=== PATIENT | male | born 1935 | race Caucasian/White ===

== ENCOUNTER → 2018-09-23 | Outpatient (CLI) | payer OTHER | END | disposition home or self-care (01) | LOC: RAH 12:53 | PROVIDERS: ATTEND Physical Medicine & Rehabilitation | DX: M48.02 Spinal stenosis, cervical region (principal); M50.322 Other cervical disc degeneration at C5-C6 level; M25.78 Osteophyte, vertebrae | CPT/HCPCS: 72125 ==

== ENCOUNTER → 2018-12-13 | Outpatient (CLI) | payer OTHER | END | disposition home or self-care (01) | LOC: RAH 07:30 | PROVIDERS: ATTEND Neurological Surgery | DX: M48.061 Spinal stenosis, lumbar region without neurogenic claudication (principal); M48.07 Spinal stenosis, lumbosacral region; M48.02 Spinal stenosis, cervical region; M48.04 Spinal stenosis, thoracic region; M25.78 Osteophyte, vertebrae; M54.12 Radiculopathy, cervical region; M54.16 Radiculopathy, lumbar region | CPT/HCPCS: 72141; 72148 ==

== ENCOUNTER → 2019-01-14 | Outpatient (CLI) | payer OTHER ==
[~2019-01-14] VITALS: Ht 177.8 cm; Wt 112.5 kg
[~2019-01-14] MED LIST: ASPI-1181 PO; DOCU100C33 PO; GLIP5TAB11 PO; LISI-613 PO; METF-444 PO; PRAV10TA39 PO; REGADENOSON 0.4 MG/5 ML PF SYG IVP SCH; RIVA20TA PO; SITA100T12 PO; TRAM50TA4 PO
== END | disposition home or self-care (01) ==
LOC: SHCH 08:34
PROVIDERS: ATTEND Internal Medicine Cardiovascular Disease
DX: Z01.810 Encounter for preprocedural cardiovascular examination (principal); I25.10 Atherosclerotic heart disease of native coronary artery without angina pectoris
CPT/HCPCS: 78452; 93017; 96374; A9500 ×2; J2785

== ENCOUNTER 2019-02-03 08:00 | Observation (INO) | payer OTHER ==
[~2019-02-03] VITALS: Ht 181.6 cm; Wt 113.9 kg
[2019-02-03 10:46] VITALS: BP 145/65
[2019-02-03 10:51] LABS: BASOPHILS % (AUTO) 0.5 % (0.0-5.0); EOSINOPHILS % (AUTO) 2.1 % (0.0-8.0); HEMATOCRIT 40.9 % (42-54); LYMPHOCYTES % (AUTO) 24.7 % (21.0-51.0); MEAN CORPUSCULAR HEMOGLOBIN 29.9 pg (27.0-33.0); MEAN CORPUSCULAR HGB CONC 32.6 g/dL (32.0-36.0); MEAN CORPUSCULAR VOLUME 91.5 fL (79-99); MONOCYTES % (AUTO) 8.2 % (3.0-13.0); NEUTROPHILS % (AUTO) 64.5 % (40.0-77.0); NUCLEATED RED BLOOD CELLS 0.1 % (0.0-0.19); PLATELET COUNT (AUTO) 162 K/uL (130-400); RED BLOOD CELL COUNT(AUTO) 4.47 MIL/uL (4.50-6.20); RED CELL DISTRIBUTION WIDTH 13.6 % (11.0-15.5); WHITE BLOOD COUNT (AUTO) 9.1 K/uL (4.8-10.8)
[2019-02-03 11:07] LABS: POTASSIUM 4.2 mmol/L (3.5-5.1)
[2019-02-03] MEDS ORDERED: RIVA20TA PO (11:15)
[2019-02-03] MEDS ORDERED: LISI-613 PO (11:15)
[2019-02-03] MEDS ORDERED: DOCU100C33 PO (11:15)
[2019-02-03] MEDS ORDERED: PRAV10TA39 PO (11:15)
[2019-02-03] MEDS ORDERED: GLIP5TAB11 PO (11:15)
[2019-02-03] MEDS ORDERED: METF-444 PO (11:15)
[2019-02-03] MEDS ORDERED: TRAM50TA4 PO (11:15)
[2019-02-03] MEDS ORDERED: ASPI-1181 PO (11:15)
[2019-02-03] MEDS ORDERED: SITA100T12 PO (11:15)
[2019-02-05] VITALS (27 sets, daily range): BP systolic 93–156; BP diastolic 39–92
[2019-02-05] MEDS ORDERED: SUCCINYLCHOLINE 200MG/10ML SYR ONE (06:52)
[2019-02-05] MEDS ORDERED: LIDOCAINE PF 2% 5ML ABBOJECT ONE (06:52)
[2019-02-05] MEDS ORDERED: DEXAMETHASONE SOD PHOSPHATE 10MG/ML 1ML VIAL ONE (06:53)
[2019-02-05] MEDS ORDERED: MIDAZOLAM HCL 1 MG/ML 2ML VIAL ONE (06:53)
[2019-02-05] MEDS ORDERED: PROPOFOL 10 MG/ML 20ML VIAL IV ONE (06:53)
[2019-02-05] MEDS ORDERED: GLYCOPYRROLATE 1 MG/5 ML SYRINGE ONE (06:53)
[2019-02-05] MEDS ORDERED: ONDANSETRON HCL 4 MG/2 ML VIAL ONE (06:53)
[2019-02-05] MEDS ORDERED: NEOSTIGMINE 5MG/5ML SYR IV ONE (06:53)
[2019-02-05] MEDS ORDERED: FENTANYL CITRATE PF 50 MCG/1 ML 2ML VIAL ONE ×3 (06:54→10:05)
[2019-02-05] MEDS ORDERED: ROCURONIUM 10MG/1ML SYR 10 MG/ML ML ONE (06:54)
[2019-02-05] MEDS ORDERED: DEXAMETHASONE SOD PHOSPHATE 4 MG/ML 1ML VIAL ONE (06:55)
[2019-02-05] MEDS ORDERED: THROMBIN-JMI 20000 UNIT KIT TP ONE (06:57)
[2019-02-05] MEDS ORDERED: BUPIVACAINE/EPI/PF 0.25% 30ML VIAL IJ ONE (06:57)
[2019-02-05] MEDS ORDERED: BACITRACIN 50,000 UNIT VIAL ONE (06:57)
[2019-02-05] MEDS ORDERED: DURAMORPH PF1 MG/ML 10ML AMP IV ONE (06:57)
[2019-02-05] MEDS ORDERED: SODIUM CHLORIDE 0.9% 1000ML 1,000 ML IV ONE (07:03)
[2019-02-05] MEDS: CEFAZOLIN SODIUM 1 GM VIAL ONE ×2 (07:27→07:30)
[2019-02-05] MEDS ORDERED: EPHEDRINE SULFATE 50 MG/ML AMPULE ONE (08:22)
[2019-02-05] MEDS ORDERED: SODIUM CHLORIDE 0.9% 10 ML VIAL IVP PRN (11:15)
[2019-02-05] MEDS: DEXAMETHASONE SOD PHOSPHATE 4 MG/ML 1ML VIAL IVP SCH ×3 (11:15→23:16)
[2019-02-05] MEDS ORDERED: TRAMADOL HCL 50 MG TABLET PO PRN (11:15)
[2019-02-05] MEDS: CEFAZOLIN SODIUM 1 GM VIAL IVP SCH ×2 (11:15→18:22)
[2019-02-05] MEDS ORDERED: HYDROCODONE/ACETAMINOPHEN 5/325 MG TAB PO PRN (11:15)
[2019-02-05] MEDS ORDERED: DOCUSATE SODIUM 100 MG CAP PO PRN (11:15)
[2019-02-05] MEDS ORDERED: MORPHINE SULFATE 2 MG/ML 1ML SYG IVP PRN (11:15)
[2019-02-05] MEDS ORDERED: PROMETHAZINE HCL 25 MG/ML 1ML AMPULE IM PRN (11:15)
[2019-02-05] MEDS: LINAGLIPTIN 5 MG TABLET PO SCH (11:45)
[2019-02-05] MEDS: LACTATED RINGERS 1000ML 1,000 ML IV SCH ×2 (13:49→23:29)
[2019-02-05] MEDS ORDERED: DEXTROSE 50%-WATER 50 ML DISP.SYRIN IV PRN (14:00)
[2019-02-05] MEDS ORDERED: GLUCAGON 1MG KIT 1 MG ML IM PRN (14:00)
[2019-02-05] MEDS: INSULIN HUMULIN R 100 UNIT/ML 3ML SQ SCH ×2 (16:53→23:16)
[2019-02-05] MEDS: METFORMIN HCL 500 MG TABLET PO SCH (17:13)
--- NOTE | 2019-02-05 20:00 | NUR ---
ACTIVITY AMBULATED IN THE HALLWAY WITH ASSISTANCE OF WALKER, STEADY GAIT, NO SOB, NO C/O PAIN AT THIS TIME, BACK TO BED, F/C TO GRAVITY DRAINAGE WITH CLEAR YELLOW URINE
[2019-02-05] MEDS ORDERED: SIMVASTATIN 10 MG TABLET PO SCH (21:00)
--- NOTE | 2019-02-05 21:05 | NUR ---
ACTIVITY AMBULATED IN THE HALLWAY WITH WALKER, NO SOB, STEADY GAIT, BACK TO BED, TOLERATED WELL, DRESSING LUMBAR AREA INTACT, J/P COMPRESSED WITH SMALL AMOUNT OF SEROS SANGUIENOUS DRAINGE, F/C TO GRAVITY DRAINAGE WITH CLEAR YELLOW URINE
[2019-02-06 03:49] VITALS: BP 112/61
[2019-02-06] MEDS: DEXAMETHASONE SOD PHOSPHATE 4 MG/ML 1ML VIAL IVP SCH ×2 (05:18→11:14)
--- NOTE | 2019-02-06 06:20 | NUR ---
F/C F/C DISCONTINUED ORDERED, TOLERATED WELL, DTV, INSTRUCT PATIENT TO CALL NURSE WHEN URGE TO VOID, PATIENT VERBALIZES UNDERSTANDING VIA TEACH BACK, CALL [facility] AT [facility]ACH
[2019-02-06] MEDS: INSULIN HUMULIN R 100 UNIT/ML 3ML SQ SCH ×2 (06:23→11:30)
--- NOTE | 2019-02-06 07:20 | NUR ---
SURGEON DR. BATISTA IN TO SEE PATIENT. ORDERS RECEIVED TO DISCHARGE HOME AFTER VOIDING AND F/U APPOINTMENT IS SET UP.
[2019-02-06 07:30] VITALS: BP 117/59
[2019-02-06] MEDS: METFORMIN HCL 500 MG TABLET PO SCH (08:41)
[2019-02-06] MEDS: LINAGLIPTIN 5 MG TABLET PO SCH (08:43)
[2019-02-06] MEDS ORDERED: ASPIRIN 81 MG EC TAB PO SCH (09:00)
[2019-02-06] MEDS ORDERED: RIVAROXABAN 20 MG TABLET PO SCH (09:00)
[2019-02-06] MEDS ORDERED: GLIPIZIDE 5 MG TABLET PO SCH (09:00)
[2019-02-06] MEDS ORDERED: LISINOPRIL 20 MG TABLET PO SCH (09:00)
--- NOTE | 2019-02-06 13:30 | NUR ---
UNABLE TO VOID PATIENT HAS BEEN UNABLE TO VOID. DENIES PAIN OR DISCOMFORT, BUT BLADDER SCAN SHOWS [address] BATISTA WAS NOTIFIED AND HE ORDERED FOR THE PATIENT TO BE CATHETERIZED AND HE WILL SEE HIM IN THE MORNING. DR. BATISTA DID SAY THAT IF THE PATIENT INSISTED ON GOING HOME HE WOULD HAVE TO GO WITH THE CATHETER IN PLACE. PATIENT WAS NOTIFIED OF MD INSTRUCTIONS AND HAS OPTED TO STAY THE NIGHT AND SEE DR. BATISTA IN THE MORNING.
[2019-02-06 16:00] VITALS: BP 108/60
--- NOTE | 2019-02-06 16:15 | NUR ---
VOIDED PATIENT HAS VOIDED 300 ML OF CLEAR YELLOW URINE TO URINAL. HE IS REQUESTING TO GO HOME. DR. BATISTA' PEANUT VENDOR HAS BEEN NOTIFIED. PENDING CALL BACK.
--- NOTE | 2019-02-06 16:50 | NUR ---
Placed call to Dr Rodríguez's office to inform that the patient voided, and that he is insisting to go home. I was told by the dental office receptionist that she will page Taty, primary care nurse Thaddeus LUNA aware to expect call.
--- NOTE | 2019-02-06 17:15 | NUR ---
DISCHARGE RECEIVED MESSAGE FROM DR. BATISTA TO GO AHEAD AND DISCHARGE THE PATIENT WITH THE UNDERSTANDING THAT IF HE IS UNABLE TO VOID AT HOME HE WILL HAVE TO GO TO THE ER FOR EVALUATION.
--- NOTE | 2019-02-06 17:20 | NUR ---
INSTRUCTIONS DISCHARGE INSTRUCTIONS GIVEN TO PATIENT USING TEACH BACK. F/U APPOINTMENT HAS BEEN MADE. ALL PRINTED INFORMATION AND PRESCRIPTION INSTRUCTIONS PLACED IN PACKET. DRESSING TO LOWER BACK HAS BEEN CHANGED AND MARY ELLEN DRAIN HAS BEEN DISCONTINUED. NO QUESTIONS OR CONCERNS VOICED. PENDING RIDE HOME.
== END 2019-02-06 17:52 | disposition home or self-care (01) ==
LOC: EDSTATUS 08:00 → DAHIP 02-05 05:56 → 4BH 02-05 11:59
PROVIDERS: ADMIT Neurological Surgery; ATTEND Neurological Surgery
DX: M48.061 Spinal stenosis, lumbar region without neurogenic claudication (principal); M48.02 Spinal stenosis, cervical region; E11.9 Type 2 diabetes mellitus without complications; I10 Essential (primary) hypertension; G56.03 Carpal tunnel syndrome, bilateral upper limbs; G56.20 Lesion of ulnar nerve, unspecified upper limb; I45.2 Bifascicular block; Z86.718 Personal history of other venous thrombosis and embolism; Z90.49 Acquired absence of other specified parts of digestive tract; Z95.1 Presence of aortocoronary bypass graft; Z79.4 Long term (current) use of insulin; Z79.899 Other long term (current) drug therapy; Z79.01 Long term (current) use of anticoagulants
CPT/HCPCS: 36415; 63047; 63048 ×2; 71045; 72020; 80048; 82948 ×6; 85025; 96372; 96374; 96375; 96376 ×2; A4215; A4221; A4222; A4223; A4344; A4510; A4600; A4649 ×4; A4663; A6260; G0378 ×31; J0330; J0690 ×2; J1100 ×6; J1815; J2001; J2250; J2274; J2405; J2704; J2710; J3010 ×3; J3490 ×3; J7030 ×2; J7120 ×2